=== PATIENT | female | born 1995 | race Caucasian/White ===

== ENCOUNTER 2017-09-18 13:50 | Emergency (ER) | payer OTHER ==
[2017-09-18 14:05] VITALS: O2SAT 97
[2017-09-18] MEDS ORDERED: ONDANSETRON 4 MG/2 ML VIAL IVP ONE (14:13)
[2017-09-18] MEDS ORDERED: KETOROLAC 30 MG/1 ML SDV IVP ONE (14:13)
--- NOTE | 2017-09-18 14:13 | EDPHY ---
H & P Stated Complaint: fever, nausea, vomiting since Time Seen by Provider: 09/18/17 14:06 - Personal History LMP (Females 10-55): 15-21 Days Ago Current Tetanus/Diphtheria Vaccine: Yes - Medical/Surgical History Other PMH: IUD, tonsillectomy - Social History Smoking Status: Never smoked Constitutional: Initial Vital Signs Temperature (C) 36.7 C 09/18/17 13:58 Heart Rate 75 09/18/17 13:58 Respiratory Rate 18 09/18/17 13:58 Blood Pressure 116/66 09/18/17 13:58 O2 Sat (%) 97 09/18/17 13:58 O2 Delivery Mode Room Air Allergies/Adverse Reactions: No Known Allergies Allergy (Unverified 09/18/17 14:22) Home Medications: Medication Instructions Recorded Doxycycline Hyclate BID 09/18/17 Levonorgestrel 09/18/17 Valacyclovir 09/18/17 valACYclovir 09/18/17 Medical Decision Making ED Course/Re-evaluation: CHIEF COMPLAINT: Fever, nausea HISTORY OF PRESENT ILLNESS: The patient is a 22 y/o female arriving from [facility] complaining of fever and nausea onset 2 nights ago. She is not sure why they transferred her to the ED. She has associated lower back pain, myalgias , and headache. She was diagnosed with an acute herpes infection, chlamydia, and bacterial vaginosis yesterday and started on medications for these infections. She had a normal UA and flu swab during that visit. She denies cough , nasal congestion, sore throat, abdominal pain, vomiting, diarrhea, or other complaints. Apart from recent infections, she is normally healthy. REVIEW OF SYSTEMS: A 10 point review of systems was performed and is negative with the exception of the elements mentioned in the history of present illness. PHYSICAL EXAM: HR, BP, O2 Sat, RR. Temp noted General Appearance: Alert, well hydrated, appropriate, and non-toxic appearing. Head: Atraumatic without scalp tenderness or obvious injury Eyes: Pupils equal, round, reactive to light and accommodation, EOMI, no trauma , no injection. Ears: Clear bilaterally, no perforation, normal landmarks Nose: Atraumatic, no rhinorrhea, clear. Throat: There is no erythema or exudates, no lesions, normal tonsils, mucus membranes moist. Neck: Supple, non-tender, no lymphadenopathy. Respiratory: No retractions, no distress, no wheezes, and no accessory muscle use. Lungs are clear to auscultation bilaterally. Cardiovascular: Regular rate and rhythm, no murmurs, rubs, or gallops. Good capillary refill all extremities. Gastrointestinal: Abdomen is soft, non-tender, non-distended, no masses, no rebound, no guarding, no peritoneal signs. Musculoskeletal: Normal active ROM of all extremities, atraumatic. Neurological: Alert, appropriate, and interactive. The patient has non-focal cranial nerves, motor, sensory, and cerebellar exam. Skin: No rashes, good turgor, no nodules on palpation. PAST MEDICAL HISTORY: IUD, herpes/BV/Chlamydia - just started medication and prophylactic PID medication PAST SURGICAL HISTORY: Tonsillectomy SOCIAL HISTORY: From [place]. [employer] student. DIFFERENTIAL DIAGNOSIS: The differential diagnosis for the patient's fever included but was not limited to primary herpes infection, bacterial vaginosis, chlamydia, pneumonia, urinary tract infection, viral syndrome, meningitis, and sepsis. MEDICAL DECISION MAKING: This is a normally healthy 22 y/o female with recent diagnosis of primary herpes who presents with a few-day history of fever, nausea, lower back pain, and headache. Her exam is unremarkable. Presentation is consistent with primary herpes infection and it's unclear to me and the patient why she was sent here as she is already being treated for these infections. Plan for symptomatic treatment with 30mg IV Toradol, 4mg IV Zofran, IV fluids then discharge on existing prescriptions. She is comfortable with this plan. Return precautions discussed. - Data Points Medications Given: Discontinued Medications Ketorolac Tromethamine (Toradol) 30 mg IVP EDNOW ONE Stop: 09/18/17 14:14 Last Admin: 09/18/17 14:20 Dose: 30 mg Ondansetron HCl (Zofran) 4 mg IVP EDNOW ONE Stop: 09/18/17 14:14 Last Admin: 09/18/17 14:20 Dose: 4 mg Departure - Departure Disposition: Home, Routine, Self-Care Clinical Impression: Primary vulvovaginal herpes simplex infection, Chlamydia Condition: Good Instructions: Genital Herpes Simplex (ED), Oral Herpes Simplex Virus Infections (ED) Additional Instructions: 1. Continue all medications as directed. 2. Use ibuprofen and Tylenol as directed for pain and fever over the next few days. 3. Follow up with a primary care provider next week. You've been referred to a local PCP if needed. 4. Return to the ED for any worsening of condition. Adult Pain & Fever Control: We recommend Acetaminophen (Tylenol) and Ibuprofen (Motrin,Advil) for pain and fever control. When fever is high or pain severe, both drugs can be used at the same time, but at different intervals. Please note the time differences. Your dose is: Acetaminophen 650mg every 4 to 6 hours Ibuprofen 600mg every 6-8 hours with food Note: do not take Acetaminophen with Hydrocodone (Vicodin, Lortab) or Oxycodone (Percocet). These medications also contain Acetaminophen. No more than 3000mg of Acetaminophen should be taken in 24 hours (for an adult). Referrals: [facility] Jaramillo,. [Clinic] - As per Instructions Sanchez Goldstein, [Medical Doctor] - As per Instructions Report Scribed for: Steve Redman Report Scribed by: Faith Gastelum Date of Report: 09/18/17 Time of Report: 14:13
[2017-09-18 14:56] VITALS: BP 118/62; PULSE 72; RESP 16; TEMP 99
== END 2017-09-18 14:57 | disposition home or self-care (01) ==
DX: A56.02 Chlamydial vulvovaginitis (principal); A60.04 Herpesviral vulvovaginitis
CPT/HCPCS: 96374; J1885; J2405